=== PATIENT | male | born 1985 | race Caucasian/White ===

== ENCOUNTER 2021-01-08 09:36 | Emergency (ER) | payer OTHER ==
[2021-01-08 09:45] VITALS: BP 132/87; PULSE 121; TEMP 98.2; BMI 28.3
[2021-01-08] MEDS ORDERED: LIDOCAINE 5% TOPICAL PATCH TP ONE (11:06)
[2021-01-08] MEDS ORDERED: ACETAMINOPHEN 325 MG TABLET (FP) PO ONE (11:06)
[2021-01-08] MEDS ORDERED: diazePAM 5 MG TABLET PO ONE (11:06)
[2021-01-08] MEDS ORDERED: KETOROLAC TROMETHAMINE 60 MG/2 ML VIAL IM ONE (11:06)
[2021-01-08] MEDS ORDERED: ACETAMINOPHEN 500 MG TABLET (FP) ONE (11:09)
[2021-01-08] MEDS ORDERED: KETOROLAC TROMETHAMINE 30 MG/1 ML VIAL ONE (11:09)
[2021-01-08] MEDS ORDERED: diazePAM 5 MG TABLET ONE (11:09)
[2021-01-08] MEDS ORDERED: LIDOCAINE 5% TOPICAL PATCH ONE (11:09)
[2021-01-08] MEDS ORDERED: oxyCODONE HCL 5 MG TABLET PO ONE (11:52)
[2021-01-08] MEDS ORDERED: oxyCODONE HCL 5 MG TABLET ONE (12:23)
[2021-01-08] MEDS ORDERED: LIDOCAINE PATCH REMOVAL MC ONE (22:00)
== END 2021-01-08 12:26 | disposition home or self-care (01) ==
LOC: JERFT 09:36
PROC: 3E0233Z Introduction of Anti-inflammatory into Muscle, Percutaneous Approach (ICD-10-PCS; principal; 2021-01-08)
DX: M54.5 Low back pain (principal)
CPT/HCPCS: 72100-TC-FY; 99284-25